=== PATIENT | male | born 1985 | race Caucasian/White ===

== ENCOUNTER 2017-02-11 11:12 | Emergency (ER) | payer OTHER | END 2017-02-11 11:58 | disposition home or self-care (01) | LOC: ER 11:12 | DX: L23.7 Allergic contact dermatitis due to plants, except food (principal); F17.210 Nicotine dependence, cigarettes, uncomplicated; Z86.19 Personal history of other infectious and parasitic diseases | CPT/HCPCS: 96372; 99282-25 ==